=== PATIENT | male | born 1945 | race Caucasian/White ===

== ENCOUNTER → 2020-11-08 01:12 | Outpatient (CLI) | payer MEDICARE, SELFPAY ==
[2020-11-08 19:16] LABS: SARS-CoV-2 RNA PCR Negative
== END ==
PROVIDERS: PCP Family Medicine Adolescent Medicine; Visit Provider Internal Medicine Cardiovascular Disease
DX: Z01.812 Encounter for preprocedural laboratory examination (principal); Z20.822 Contact with and (suspected) exposure to COVID-19
CPT/HCPCS: C9803; U0003; U0005

== ENCOUNTER 2020-11-11 01:26 | Day surgery (SDC) | payer MEDICARE, SELFPAY ==
[2020-11-10 13:28] VITALS: BMI 28.3
[2020-11-11 07:45] VITALS: BP 119/70; PULSE 94; RESP 15; TEMP 36.2; O2SAT 96; BMI 27.7
[2020-11-11 07:58] LABS: Basophils Absolute Auto 0.1 K/mm3 (0.0-0.1); Basophils Percent Auto 0.6 % (0.2-1.2); Eosinophils Absolute Auto 0.7 K/mm3 (0-0.3); Eosinophils Percent Auto 6.8 % (0-4.4); Hematocrit 45.4 % (42.0-52.0); Hemoglobin 14.8 g/dL (14.0-18.0); Immature Granulocyte Absolute 0.03 K/mm3 (0.00-0.031); Immature Granulocyte Percent A 0.3 % (0-0.5); Lymphocytes Absolute Auto 1.71 K/mm3 (0.9-3.2); Lymphocytes Percent Auto 17.6 % (18.3-44.2); Mean Corpuscular HGB Conc 32.6 g/dl (32-36); Mean Corpuscular Hemoglobin 31.6 pg (26-34); Mean Platelet Volume 10.2 fl (7.4-10.4); Monocytes Absolute Auto 0.9 K/mm3 (0.1-0.6); Monocytes Percent Auto 8.9 % (2.6-8.5); Neutrophils Absolute Auto 6.4 K/mm3 (1.3-6.7); Neutrophils Percent Auto 65.8 % (45.5-73.1); Platelet Count Result 197 k/mm3 (150-375); Red Blood Count 4.68 M/mm3 (4.6-6.20); Red Cell Distribution Width 13.5 % (11.5-14.5); White Blood Count 9.7 K/mm3 (4.5-10.0)
[2020-11-11 08:07] LABS: INR 1.1; Prothrombin Time 14.3 Seconds (11.1-14.7)
[2020-11-11 08:10] LABS: Anion Gap 8 mmol/L (8-16); Blood Urea Nitrogen 27 mg/dL (9-20); Calcium 10.7 mg/dL (8.4-10.2); Carbon Dioxide 25 mmol/L (22-30); Chloride 108 mmol/L (98-107); Estimated CRCL calculation 33 ml/min; Estimated Glomerular Filt Rate 33; Glucose 105 mg/dL (75-110); Potassium 4.9 mmol/L (3.4-5.0); Sodium 141 mmol/L (137-145)
--- NOTE | 2020-11-11 08:38 | PM.IMHP ---
H&P: HPI History of Present Illness Date/Time: 11/11/20 08:38 Chief Complaint: Bi V ICD at [facility]TH[facility], needs generator change Narrative: Mr. Felix Lucero is a 74-year-old male I follow in the office for his heart failure, cardiomyopathy, PAF and Biotronik Bi V ICD which was implanted 2013. He has moderate CAD. His device reached [facility] on 09/25/2020 and he is here for generator change. He is feeling well today with no fevers or shortness of breath. He is unable to lie flat because of being uncomfortable and claustrophobia. He has held his Eliquis last dose being on Sunday. He has been NPO. Review of Systems Constitutional: Constitutional: Denies lethargy ENT: Denies epistaxis Cardiovascular: Cardiovascular: Denies chest pain, Denies pedal edema, Denies lightheadedness and Denies palpitations Respiratory: Respiratory: Denies chest congestion, Denies dyspnea and Reports dyspnea on exertion Gastrointestinal: Gastrointestinal: Denies abdominal pain Genitourinary: Genitourinary: Denies dysuria Musculoskeletal: Musculoskeletal: Denies back pain Integumentary/Breasts: Skin/Breast: Denies rash Neurologic: Denies headache(s) Psychiatric: Psychiatric: Denies behavioral changes [facility] Past Medical History Medical History (Updated 11/11/20 @ 08:44 by Rocio No MD) Biventricular ICD (implantable cardioverter-defibrillator) in place Biotronik Bi V ICD implanted [address] Olguin. Generator change [address] No. CAD (coronary artery disease) Chronic kidney disease Left ventricular thrombus Nonsustained ventricular tachycardia Paroxysmal atrial fibrillation Peripheral neuropathy Family History Family History (Updated 11/11/20 @ 08:44 by Rocio No MD) Father Leukemia Mother Brain tumor Social History Social History Smoking status: Former smoker Tobacco type: cigarettes Second hand tobacco smoke exposure: No Additional smoking assessment comments: 1PPD when smoked before Alcohol intake: former Substance use: never Substance use type: does not use Living arrangements: alone Gender identity (if verbalized by the patient): Male Spiritual care concerns: No Meds Home Medications and Allergies Home Medications Medication Instructions Recorded Confirmed Type apixaban [Eliquis] 5 mg PO DAILY 11/10/20 11/10/20 History carvedilol 25 mg PO BID 11/10/20 11/10/20 History furosemide 40 mg PO DAILY 11/10/20 11/10/20 History khxjgtgyllvf-elq-qexc-FA-vit K 1 tablet PO DAILY 11/10/20 11/10/20 History [Adults Multivitamin] sacubitril-valsartan [Entresto] 1 tablet PO BID 11/10/20 11/10/20 History simvastatin 25 mg PO DAILY 11/10/20 11/10/20 History Allergies Allergy/AdvReac Type Severity Reaction Status Date / Time Penicillins Allergy Mild RASH Verified 11/11/20 08:02 Vital Signs Vital Signs - 24 hr 11/11/20 07:45 Temperature 97.2 F L Pulse Rate 94 Respiratory Rate 15 Blood Pressure 119/70 Pulse Oximetry 96 Exam Const: General: comfortable and no acute distress HENMT: Mouth: Yes moist mucous membranes Other: Edentulous Eyes: EOM: EOMs intact bilaterally Neck: Neck: supple and no JVD Thyroid: thyroid normal Resp: Effort & Inspection: normal respiratory effort Auscultation: clear to auscultation bilaterally Cardio: Rate: regular rate Rhythm: regular rhythm Heart sounds: no murmurs GI: GI Palp: Yes Soft to palpation and No Tenderness to palpation present (GI) Skin: General skin exam: normal color and no rashes or lesions noted Other: Incision over ICD is well-healed Neuro: Cognition (Neuro): normal cognition Speech: normal speech Motor exam (neuro): Normal motor muscle tone present throughout Extrem: General: no edema and no pedal edema Psych: Mental Status: mental status grossly normal Affect: normal affect H&P: Results Labs Labs: Short CBC 11/11/20 Range/Un
--- NOTE | 2020-11-11 08:46 | WPDMODSED ---
Moderate Sedation Note-Pt Data Patient Data Diagnosis: Bi V ICD at MARTHA Present Complaint: Bi V ICD at [facility]THA. History of nonischemic cardiomyopathy. Procedure to be performed/Plan: Conscious sedation Generator change Allergies Allergy/AdvReac Type Severity Reaction Status Date / Time Penicillins Allergy Mild RASH Verified 11/11/20 08:02 Home Medications Medication Instructions Recorded Confirmed Type apixaban [Eliquis] 5 mg PO DAILY 11/10/20 11/10/20 History carvedilol 25 mg PO BID 11/10/20 11/10/20 History furosemide 40 mg PO DAILY 11/10/20 11/10/20 History ckigxuqmkmga-viq-ayum-FA-vit K 1 tablet PO DAILY 11/10/20 11/10/20 History [Adults Multivitamin] sacubitril-valsartan [Entresto] 1 tablet PO BID 11/10/20 11/10/20 History simvastatin 25 mg PO DAILY 11/10/20 11/10/20 History Sedation/Anesthesia: No previous sedation/anesthesia problems (including family history). [facility] Past Medical History Medical History (Updated 11/11/20 @ 08:44 by Rocio No MD) Biventricular ICD (implantable cardioverter-defibrillator) in place Biotronik Bi V ICD implanted [address] Olguin. Generator change [address] No. CAD (coronary artery disease) Chronic kidney disease Left ventricular thrombus Nonsustained ventricular tachycardia Paroxysmal atrial fibrillation Peripheral neuropathy Family History Family History (Updated 11/11/20 @ 08:45 by Rocio No MD) Father Leukemia Mother Brain tumor Social History Social History Smoking status: Former smoker Tobacco type: cigarettes Second hand tobacco smoke exposure: No Additional smoking assessment comments: 1PPD when smoked before Alcohol intake: former Substance use: never Substance use type: does not use Living arrangements: alone Gender identity (if verbalized by the patient): Male Spiritual care concerns: No Mod Sed Physical Exam Physical Exam Pre Procedural Exam: Normal: Appearance, Eyes, Ears, Nose, Neck, Throat, Lungs, Heart Size, Heart Rate, Heart Rhythm, Neuro Exam, Abdomen, Liver, Extremities and Skin (Incision at ICD site is well healed) and Variation: Airway (Edentulous) Hours since solid foods: 12 Hours since liquid intake: 12 Internal Medicine - PN: Obj Da Vital Signs Vital Signs: Vital Signs - 24 hr 11/11/20 07:45 Temperature 97.2 F L Pulse Rate 94 Respiratory Rate 15 Blood Pressure 119/70 Pulse Oximetry 96 Labs CBC & Chem 7: 11/11/20 07:48 11/11/20 07:48 Labs: Laboratory Results - last 24 hr 11/11/20 11/11/20 11/11/20 07:48 07:48 07:48 WBC 9.7 RBC 4.68 Hgb 14.8 Hct 45.4 MCV 97.0 MCH 31.6 MCHC 32.6 RDW 13.5 Plt Count 197 MPV 10.2 Immature Gran % (Auto) 0.3 Neut % (Auto) 65.8 Lymph % (Auto) 17.6 L [place] % (Auto) 8.9 H Eos % (Auto) 6.8 H Baso % (Auto) 0.6 Lymph # (Auto) 1.71 [place] # (Auto) 0.9 H Eos # (Auto) 0.7 H Baso # (Auto) 0.1 Abs Immat Gran (auto) 0.03 Absolute Neuts (auto) 6.4 Absolute Nucleated RBC 0.0 Nucleated RBC % 0.0 PT 14.3 INR 1.1 Sodium 141 Potassium 4.9 Chloride 108 H Carbon Dioxide 25 Anion Gap 8 BUN 27 H Creatinine 2.00 H Estim Creat Clear Calc 33 Estimated GFR 33 L Glucose 105 Calcium 10.7 H ASA Classification/Sedation ASA Classification/Sedation ASA Class: III Risks: Risks, benefits and alternatives explained and patient/family accepted plan for sedation. Reviewed risks of generator change with patient. These include breathing problems, allergic reactions, bleeding, infection, among others. Lead revision is not expected but could be needed and there are other associated with that procedure. Patient re-evaluated immediately prior to sedation.
--- NOTE | 2020-11-11 10:20 | PM.OP ---
Procedure Note - Brief Procedure Note - Brief Date of procedure: 11/11/20 Pre-op diagnosis: MARTHA Post-op diagnosis: same Procedure performed: Conscious sedation Generator change Description of procedure: uneventful generator change Anesthesia: local ( with conscious sedation) Surgeon: Rocio No MD Disposition: observation
--- NOTE | 2020-11-11 10:22 | ECG_ITS ---
Measurements Intervals [place] Rate: 80 P: [place]: 0 QRS: 138 QRSD: 199 T: 0 QT: 456 QTc: 528 Interpretive Statements ELECTRONIC VENTRICULAR PACEMAKER UNDERLYING PROBABLY ARIAL FLUTTER BASELINE ARTIFACT- I, III, AVL, AVF, V1-V2 NO FURTHER INTERPRETATION IS POSSIBLE ABNORMAL ECG Electronically Signed On 11-11-2020 11:14:57 CDT by Teddy Licona D.O.
--- NOTE | 2020-11-11 10:26 | P.OP_ITS ---
Procedure Note - Detailed Date of procedure: 11/11/20 Pre-op diagnosis: MARTHA Description of procedure: PROCEDURE: Conscious sedation Generator change UNDERLYING RHYTHM: normal sinus rhythm but went into atrial fibrillation transiently during the procedure CONSCIOUS SEDATION: Assessment: The patient has no history of anesthesia problems. The oropharynx is clear. The patient was deemed to be a good candidate for conscious sedation. The patient had continuous hemodynamic and oximetric monitoring during the procedure. Start time: 912 Completion time: 10 15 Total conscious sedation time: 62 minutes Medications: Versed 2 mg, fentanyl 125 mcg IV push Trained observer: Petra Huff RN Outcome: The patient tolerated the procedure well with no complications. PROCEDURE: After informed consent, the patient is brought to the assistant laboratory director and the left prepectoral area was prepped and draped in usual fashion. The patient was given a prophylactic antibiotic intravenously With vancomycin. After conscious sedation as described above, the area was anesthetized with 1% lidocaine. A skin incision is made with the Plasma Blade and carried down to the pacing capsule which was also incised. Hemostasis is obtained using the Plasma Blade. The lead/s was/were freed from the underlying capsule and inspected and were found to be intact. The pulse generator was delivered from the pocket. The lead/s was/were disconnected from the existing device and reconnected to the new device. A gentle tug could not remove it/them. The device and lead/s was/were interrogated and found to be functioning appropriately. The area was copiously irrigated with antibiotic-containing solution. The device was replaced in the pocket. The subcutaneous tissues were closed in a two-layer fashion with interrupted 2 0 Vicryl sutures and the skin was closed in a continuous fashion using 4 0 Vicryl. The area was cleansed, an Aquacel dressing applied. The patient tolerated the procedure well with no complications. Estimated blood loss was negligible. DEVICE INFORMATION: New pulse generator: Biotronik Intica IRWIN 7 HF-T, serial number [id number] Existing right atrial lead: Biotronik serial number [id number] Existing right ventricular lead: Biotronik serial number [id number] Existing left ventricular lead: [employer] serial number [id number] Explanted device: BiotronikCRT-D, serial number [id number] implanted 02/27/2014 THRESHOLD INFORMATION: Atrial lead: P-wave sensing 2.6 volts, impedance 599 Ohms, threshold could not be determined at that time because of atrial fibrillation Right ventricular lead: R-wave sensing 5.3 mV, impedance 443 Ohms, threshold 0.4 volts at 0.4 milliseconds , shock impedance 81 Ohms Left ventricular lead R-wave sensing 6.5 mV, impedance 638 Ohms, threshold 2.2 volts at 1.25 milliseconds PROGRAMMED PARAMETERS: DDD 50/130 Surgeon: Rocio No MD
[2020-11-11 10:35] VITALS: BP 104/80; PULSE 81; RESP 16; TEMP 36.6; O2SAT 99
[2020-11-11 10:50] VITALS: BP 114/61; PULSE 86; RESP 16; O2SAT 98
[2020-11-11 11:05] VITALS: BP 98/60; PULSE 81; RESP 16; O2SAT 95
[2020-11-11 11:20] VITALS: BP 110/83; PULSE 80; RESP 16; O2SAT 99
== END 2020-11-11 12:40 | disposition home or self-care (01) ==
PROVIDERS: PCP Family Medicine Adolescent Medicine; Visit Provider Internal Medicine Cardiovascular Disease
PROC: 0JPT0PZ Removal of Cardiac Rhythm Related Device from Trunk Subcutaneous Tissue and Fascia, Open Approach (ICD-10-PCS; CPT 33264; principal; 2020-11-11 08:30)
DX: Z45.02 Encounter for adjustment and management of automatic implantable cardiac defibrillator (principal); I25.10 Atherosclerotic heart disease of native coronary artery without angina pectoris; I42.8 Other cardiomyopathies; I50.9 Heart failure, unspecified; N18.9 Chronic kidney disease, unspecified; I48.0 Paroxysmal atrial fibrillation; I47.2 Ventricular tachycardia; G62.9 Polyneuropathy, unspecified; Z87.891 Personal history of nicotine dependence; Z79.01 Long term (current) use of anticoagulants
CPT/HCPCS: 33264; 36415; 80048; 85025; 85610; 93005; C1882; C9803; J2250; J3010; J3370; J7040; U0003; U0005

== ENCOUNTER 2021-03-02 06:36 | Outpatient (CLI) | payer MEDICARE, SELFPAY ==
[2021-03-02 07:31] LABS: Basophils Absolute Auto 0.1 K/mm3 (0.0-0.1); Basophils Percent Auto 0.5 % (0.2-1.2); Eosinophils Absolute Auto 0.6 K/mm3 (0-0.3); Eosinophils Percent Auto 6.5 % (0-4.4); Hematocrit 43.1 % (42.0-52.0); Immature Granulocyte Absolute 0.04 K/mm3 (0.00-0.031); Immature Granulocyte Percent A 0.4 % (0-0.5); Lymphocytes Absolute Auto 1.92 K/mm3 (0.9-3.2); Mean Corpuscular HGB Conc 32.5 g/dl (32-36); Mean Corpuscular Hemoglobin 32.3 pg (26-34); Mean Corpuscular Volume 99.3 fl (80-100); Mean Platelet Volume 10.6 fl (7.4-10.4); Monocytes Absolute Auto 1.1 K/mm3 (0.1-0.6); Monocytes Percent Auto 11.8 % (2.6-8.5); Neutrophils Absolute Auto 5.5 K/mm3 (1.3-6.7); Neutrophils Percent Auto 59.8 % (45.5-73.1); Platelet Count Result 178 k/mm3 (150-375); Red Blood Count 4.34 M/mm3 (4.6-6.20); Red Cell Distribution Width 13.2 % (11.5-14.5); White Blood Count 9.1 K/mm3 (4.5-10.0)
[2021-03-02 07:54] LABS: Alanine Aminotransferase 24 U/L (4-50); Albumin Level 4.2 g/dL (3.5-5.1); Alkaline Phosphatase 164 U/L (38-126); Anion Gap 7 mmol/L (8-16); Aspartate Amino Transferase 30 U/L (17-59); Bilirubin,Total 0.7 mg/dL (0.2-1.3); Blood Urea Nitrogen 53 mg/dL (9-20); Calcium 10.3 mg/dL (8.4-10.2); Carbon Dioxide 24 mmol/L (22-30); Chloride 105 mmol/L (98-107); Estimated Glomerular Filt Rate 29; Glucose 166 mg/dL (65-110); Potassium 4.9 mmol/L (3.4-5.0); Sodium 136 mmol/L (137-145)
== END 2021-03-02 06:37 | disposition home or self-care (01) ==
PROVIDERS: PCP Family Medicine Adolescent Medicine; Visit Provider Internal Medicine Cardiovascular Disease
DX: I50.22 Chronic systolic (congestive) heart failure (principal); Z79.01 Long term (current) use of anticoagulants
CPT/HCPCS: 36415; 80053; 84443; 85025

== ENCOUNTER 2021-04-11 07:31 | Outpatient (CLI) | payer MEDICARE, SELFPAY ==
[2021-04-11 08:02] LABS: Anion Gap 10 mmol/L (8-16); Blood Urea Nitrogen 37 mg/dL (9-20); Calcium 10.2 mg/dL (8.4-10.2); Carbon Dioxide 21 mmol/L (22-30); Chloride 110 mmol/L (98-107); Estimated Glomerular Filt Rate 35; Glucose 98 mg/dL (65-110); Potassium 4.6 mmol/L (3.4-5.0); Sodium 141 mmol/L (137-145)
== END 2021-04-11 07:32 | disposition home or self-care (01) ==
PROVIDERS: PCP Family Medicine Adolescent Medicine; Visit Provider Internal Medicine Cardiovascular Disease
DX: I50.22 Chronic systolic (congestive) heart failure (principal); N18.30 Chronic kidney disease, stage 3 unspecified
CPT/HCPCS: 36415; 80048

== ENCOUNTER 2021-04-26 06:33 | Outpatient (CLI) | payer MEDICARE, SELFPAY ==
[2021-04-26 08:14] LABS: Anion Gap 11 mmol/L (8-16); Blood Urea Nitrogen 37 mg/dL (9-20); Calcium 10.5 mg/dL (8.4-10.2); Carbon Dioxide 21 mmol/L (22-30); Chloride 108 mmol/L (98-107); Estimated Glomerular Filt Rate 25; Glucose 111 mg/dL (65-110); Potassium 5.2 mmol/L (3.4-5.0); Sodium 140 mmol/L (137-145)
== END 2021-04-26 06:34 | disposition home or self-care (01) ==
PROVIDERS: PCP Family Medicine Adolescent Medicine; Visit Provider Nurse Practitioner Adult Health
DX: I50.22 Chronic systolic (congestive) heart failure (principal)
CPT/HCPCS: 36415; 80048

== ENCOUNTER 2021-05-10 06:37 | Outpatient (CLI) | payer MEDICARE, SELFPAY ==
[2021-05-10 07:41] LABS: Hematocrit 48.3 % (42.0-52.0); Hemoglobin 16.1 g/dL (14.0-18.0); Mean Corpuscular HGB Conc 33.3 g/dl (32-36); Mean Corpuscular Hemoglobin 34.3 pg (26-34); Mean Platelet Volume 10.3 fl (7.4-10.4); Platelet Count Result 206 k/mm3 (150-375); Red Blood Count 4.69 M/mm3 (4.6-6.20); Red Cell Distribution Width 13.4 % (11.5-14.5); White Blood Count 9.6 K/mm3 (4.5-10.0)
[2021-05-10 07:44] LABS: Add Urine Microscopic? YES; Appearance Urine Clear (Clear); Bilirubin Urine Negative (Negative); Blood Urine Negative (Negative); Color Urine Yellow (Yellow); Glucose Urine UA 3+ mg/dL (Negative); Ketones Urine Negative (Negative); Leukocyte Esterase Ur Negative LEU/UL (Negative); Mucus Urine Rare /lpf; Nitrate Urine Negative (Negative); Protein Urine 1+ mg/dL (Negative); RBC Urine 0-2 /hpf (0-2); Specific Grav Ur 1.021 (1.001-1.035); Squamous Epithelial Cell Urine Rare /hpf (Few); Urobilinogen Urine Negative mg/dL (<2.0); WBC Urine 0-3 /hpf
[2021-05-10 08:09] LABS: Creatinine Urine 147.5 mg/dL; Total Protein Urine Random 27 mg/dL; Ur Ttl Prot Creatinine Ratio 0.18 mg/mg (0-0.20)
[2021-05-10 09:52] LABS: Complement C3 116 mg/dL (88-165)
[2021-05-10 11:22] LABS: Albumin Level 4.8 g/dL (3.5-5.1); Anion Gap 11 mmol/L (8-16); Blood Urea Nitrogen 43 mg/dL (9-20); Calcium 11.4 mg/dL (8.4-10.2); Carbon Dioxide 24 mmol/L (22-30); Chloride 106 mmol/L (98-107); Estimated Glomerular Filt Rate 28; Glucose 145 mg/dL (65-110); Phosphorus 4.9 mg/dL (2.5-4.5); Sodium 141 mmol/L (137-145)
[2021-05-10 11:37] LABS: Parathyroid Intact 377.3 pg/mL (7.5-53.5)
[2021-05-10 15:00] LABS: Potassium 6.1 mmol/L (3.4-5.0)
[2021-05-13 20:06] LABS: Complement Total CH50 >60 U/mL (31-60)
[2021-05-13 22:24] LABS: Kappa\\Lambda Light Chains 1.37 (0.26-1.65); Lambda Light Chain 69.2 mg/L (5.7-26.3)
[2021-05-19 15:30] LABS: Albumin 43 %; Measured Kappa Chains 2.92 mg/dL (<2.00); Measured Lambda Chains <1.00 mg/dL (<2.00); Pro/Creat Ratio 200 mg/g creat (<=114); Total Kappa Chains 29.2 mg/24 h
== END 2021-05-10 06:38 | disposition home or self-care (01) ==
PROVIDERS: PCP Family Medicine Adolescent Medicine; Visit Provider Internal Medicine Nephrology
DX: N18.4 Chronic kidney disease, stage 4 (severe) (principal)
CPT/HCPCS: 36415; 80069; 81001; 82570; 83883; 83970; 84156; 85027; 86038; 86160; 86162; 86334; 86335

== ENCOUNTER 2021-05-18 13:22 | Outpatient (CLI) | payer MEDICARE, SELFPAY ==
[2021-05-18 15:13] LABS: Vitamin D 25 Hydroxy 31.7 ng/mL
[2021-05-18 15:47] LABS: Albumin Level 4.7 g/dL (3.5-5.1); Anion Gap 11 mmol/L (8-16); Blood Urea Nitrogen 52 mg/dL (9-20); Calcium 10.5 mg/dL (8.4-10.2); Carbon Dioxide 20 mmol/L (22-30); Chloride 106 mmol/L (98-107); Estimated Glomerular Filt Rate 24; Glucose 106 mg/dL (65-110); Phosphorus 4.8 mg/dL (2.5-4.5); Sodium 137 mmol/L (137-145)
== END 2021-05-18 13:23 | disposition home or self-care (01) ==
PROVIDERS: PCP Family Medicine Adolescent Medicine; Visit Provider Internal Medicine Nephrology
DX: N18.4 Chronic kidney disease, stage 4 (severe) (principal)
CPT/HCPCS: 36415; 80069; 82306

== ENCOUNTER 2021-05-19 19:49 | Emergency (ER) | payer MEDICARE, SELFPAY ==
--- NOTE | 2021-05-19 19:52 | ECG_ITS ---
Measurements Intervals [place] Rate: 69 P: 41 DE: 182 QRS: 160 QRSD: 178 T: 22 QT: 405 QTc: 436 Interpretive Statements ATRIAL SENSE- ELECTRONIC VENTRICULAR PACEMAKER FUSION COMPLEX BASELINE ARTIFACT- I, II, III, AVR, AVL, AVF NO FURTHER INTERPRETATION IS POSSIBLE ATYPICAL ECG Electronically Signed On 05-19-2021 20:13:24 DRIER OPERATOR HEAD by Teddy Licona D.O.
[2021-05-19 19:53] VITALS: BP 114/76; PULSE 105; RESP 18; TEMP 36.4; O2SAT 99
[2021-05-19 20:24] LABS: Basophils Percent Auto 0.4 % (0.2-1.2); Eosinophils Absolute Auto 0.4 K/mm3 (0-0.3); Hematocrit 43.5 % (42.0-52.0); Hemoglobin 15.1 g/dL (14.0-18.0); Immature Granulocyte Absolute 0.03 K/mm3 (0.00-0.031); Immature Granulocyte Percent A 0.3 % (0-0.5); Lymphocytes Absolute Auto 2.18 K/mm3 (0.9-3.2); Lymphocytes Percent Auto 20.8 % (18.3-44.2); Mean Corpuscular HGB Conc 34.7 g/dl (32-36); Mean Corpuscular Hemoglobin 34.2 pg (26-34); Mean Corpuscular Volume 98.4 fl (80-100); Mean Platelet Volume 10.3 fl (7.4-10.4); Monocytes Absolute Auto 1.1 K/mm3 (0.1-0.6); Neutrophils Absolute Auto 6.8 K/mm3 (1.3-6.7); Neutrophils Percent Auto 64.5 % (45.5-73.1); Platelet Count Result 201 k/mm3 (150-375); Red Blood Count 4.42 M/mm3 (4.6-6.20); Red Cell Distribution Width 12.8 % (11.5-14.5); White Blood Count 10.5 K/mm3 (4.5-10.0)
[2021-05-19 20:35] LABS: Anion Gap 12 mmol/L (8-16); Blood Urea Nitrogen 53 mg/dL (9-20); Calcium 10.2 mg/dL (8.4-10.2); Carbon Dioxide 18 mmol/L (22-30); Chloride 108 mmol/L (98-107); Estimated CRCL calculation 25 ml/min; Estimated Glomerular Filt Rate 24; Glucose 117 mg/dL (65-110); Potassium 4.8 mmol/L (3.4-5.0); Sodium 138 mmol/L (137-145)
[2021-05-19 21:44] VITALS: BP 134/77; PULSE 102; RESP 18; O2SAT 98
--- NOTE | 2021-05-19 22:13 | ED.RECABL ---
HPI - Recheck/Abnormal Lab/Rx General Chief Complaint: Recheck/Abnormal Lab/Rx Stated Complaint: high K+ level 7.0 Time Seen by Provider: 05/19/21 22:03 Source: patient Mode of arrival: ambulatory Limitations: no limitations History of Present Illness HPI narrative: 75-year-old male Here because his basket mender, Dr. Myers, called him and told him to come to the ED because his potassium was too high In the reviewing his labs it seems to have trended from 5.2-6 0.1-7 over the last 3 weeks, with the most recent labs being drawn yesterday The patient does not have any complaints at all There have been a couple of interventions, he was taken off Entresto, and a diuretic which he cannot name had its dose changed Related Data Home Medications Medication Instructions Recorded Confirmed Adults Multivitamin 1 tablet PO DAILY 11/10/20 11/10/20 Entresto 1 tablet PO BID 11/10/20 11/10/20 carvedilol 25 mg PO BID 11/10/20 11/10/20 furosemide 40 mg PO DAILY 11/10/20 11/10/20 simvastatin 25 mg PO DAILY 11/10/20 11/10/20 Allergies Allergy/AdvReac Type Severity Reaction Status Date / Time Penicillins Allergy Mild RASH Verified 11/11/20 08:02 Review of Systems Constitutional: Constitutional: Denies chills, Denies fever(s) and Denies weakness Cardiovascular: Cardiovascular: Denies chest pain Respiratory: Respiratory: Denies cough and Denies dyspnea Gastrointestinal: Gastrointestinal: Denies diarrhea, Denies nausea and Denies vomiting Musculoskeletal: Musculoskeletal: Reports myalgias PMFSH Past Medical History Medical History Biventricular ICD (implantable cardioverter-defibrillator) in place Biotronik Bi V ICD implanted [address] Olguin. Generator change [address] No. CAD (coronary artery disease) Chronic kidney disease Left ventricular thrombus Nonsustained ventricular tachycardia Paroxysmal atrial fibrillation Peripheral neuropathy Family History Family History Father Leukemia Mother Brain tumor Social History Social History Smoking status: Former smoker Tobacco type: cigarettes Second hand tobacco smoke exposure: No Additional smoking assessment comments: 1PPD when smoked before Alcohol intake: former Substance use: never Substance use type: does not use Gender identity (if verbalized by the patient): Male Spiritual care concerns: No Exam Const: General: cooperative, no acute distress and alert Orientation/consciousness: patient oriented x3 (alert) HENMT: Head: normal to inspection, normocephalic and atraumatic Ears: external ears normal General nose exam: no epistaxis Eyes: Conjunctivae: conjunctivae normal EOM: EOMs intact bilaterally Neck: Neck: normal visual inspection, supple and no JVD Resp: Effort & Inspection: normal respiratory effort and not labored Auscultation: clear to auscultation bilaterally, no rales, no rhonchi, no wheezes and other (BS =) Cardio: Rate: regular rate Rhythm: regular rhythm Heart sounds: no murmurs GI: GI Palp: Yes Soft to palpation and No Tenderness to palpation present (GI) Skin: General skin exam: no rashes or lesions noted Neuro: General: patient oriented x3 (alert) and moves all extremities Speech: normal speech Extrem: General: normal to inspection and no pedal edema Psych: Affect: normal affect Course Course Emergency Course: Potassium is fine, creatinine is relatively stable, discussed with Dr. Baumann who is on-call for nephrology tonight and they will get in touch with him from the office to decide on further eval's and treatments Vital Signs Vital signs: Vital Signs Temperature 36.4 C L 05/19/21 19:53 Pulse Rate 105 H 05/19/21 19:53 Respiratory Rate 18 05/19/21 19:53 Blood Pressure 114/76 05/19/21 19:53 Pulse Oximetry 99 05/19/21
[2021-05-19 22:34] VITALS: BP 130/65; PULSE 98; RESP 16; O2SAT 99
== END 2021-05-19 22:35 | disposition home or self-care (01) ==
LOC: ANHED 22:26
PROVIDERS: Emergency Provider Emergency Medicine; PCP Family Medicine Adolescent Medicine
DX: N18.9 Chronic kidney disease, unspecified (principal); I25.10 Atherosclerotic heart disease of native coronary artery without angina pectoris; I48.0 Paroxysmal atrial fibrillation; Z87.891 Personal history of nicotine dependence
CPT/HCPCS: 36415; 80048; 85025; 93005; 99283

== ENCOUNTER 2021-05-30 06:32 | Outpatient (CLI) | payer MEDICARE, SELFPAY ==
[2021-05-30 09:07] LABS: Anion Gap 10 mmol/L (8-16); Blood Urea Nitrogen 32 mg/dL (9-20); Calcium 10.7 mg/dL (8.4-10.2); Carbon Dioxide 21 mmol/L (22-30); Chloride 108 mmol/L (98-107); Estimated Glomerular Filt Rate 31; Glucose 97 mg/dL (65-110); Potassium 5.7 mmol/L (3.4-5.0); Sodium 139 mmol/L (137-145)
== END 2021-05-30 06:33 | disposition home or self-care (01) ==
LOC: ANHLAB 06:36
PROVIDERS: PCP Family Medicine Adolescent Medicine; Visit Provider Nurse Practitioner Adult Health
DX: I42.8 Other cardiomyopathies (principal)
CPT/HCPCS: 36415; 80048

== ENCOUNTER 2021-07-22 06:34 | Outpatient (CLI) | payer MEDICARE, SELFPAY ==
[2021-07-22 07:48] LABS: Anion Gap 7 mmol/L (8-16); Blood Urea Nitrogen 27 mg/dL (9-20); Calcium 10.3 mg/dL (8.4-10.2); Carbon Dioxide 27 mmol/L (22-30); Chloride 107 mmol/L (98-107); Estimated Glomerular Filt Rate 35; Glucose 147 mg/dL (65-110); Sodium 141 mmol/L (137-145)
== END 2021-07-22 06:35 | disposition home or self-care (01) ==
LOC: ANHLAB 06:39
PROVIDERS: PCP Family Medicine Adolescent Medicine; Visit Provider Internal Medicine Cardiovascular Disease
DX: I42.8 Other cardiomyopathies (principal)
CPT/HCPCS: 36415; 80048

== ENCOUNTER 2021-10-10 06:36 | Outpatient (CLI) | payer MEDICARE, SELFPAY ==
[2021-10-10 07:11] LABS: Anion Gap 9 mmol/L (8-16); Blood Urea Nitrogen 34 mg/dL (9-20); Calcium 9.5 mg/dL (8.4-10.2); Carbon Dioxide 21 mmol/L (22-30); Chloride 108 mmol/L (98-107); Estimated Glomerular Filt Rate 35; Glucose 147 mg/dL (65-110); Potassium 4.1 mmol/L (3.4-5.0); Sodium 138 mmol/L (137-145)
== END 2021-10-10 06:37 | disposition home or self-care (01) ==
PROVIDERS: PCP Family Medicine Adolescent Medicine; Visit Provider Internal Medicine Cardiovascular Disease
DX: I50.43 Acute on chronic combined systolic (congestive) and diastolic (congestive) heart failure (principal); I42.8 Other cardiomyopathies
CPT/HCPCS: 36415; 80048

== ENCOUNTER 2021-11-23 06:38 | Outpatient (CLI) | payer MEDICARE, SELFPAY ==
[2021-11-23 08:26] LABS: Anion Gap 6 mmol/L (8-16); Blood Urea Nitrogen 25 mg/dL (9-20); Calcium 9.5 mg/dL (8.4-10.2); Carbon Dioxide 26 mmol/L (22-30); Chloride 107 mmol/L (98-107); Estimated Glomerular Filt Rate 37; Glucose 136 mg/dL (65-110); Potassium 4.3 mmol/L (3.4-5.0); Sodium 139 mmol/L (137-145)
== END 2021-11-23 06:39 | disposition home or self-care (01) ==
LOC: ANHLAB 06:41
PROVIDERS: PCP Family Medicine Adolescent Medicine; Visit Provider Nurse Practitioner Adult Health
DX: I50.43 Acute on chronic combined systolic (congestive) and diastolic (congestive) heart failure (principal)
CPT/HCPCS: 36415; 80048